=== PATIENT | female | born 1970 | race Caucasian/White ===

== ENCOUNTER 2019-01-24 17:06 | Inpatient (IN) | payer OTHER ==
[~2019-01-24] VITALS: Ht 165.1 cm; Wt 64.0 kg
--- NOTE | 2019-01-24 17:06 | NUR ---
PT BIB RA 102, C/O CHEST PAIN WHILE BEING TX FROM [facility] TO [facility],ASA 325 MG GIVEN AND NTG, PT IS AAOX4, NOT IN RESPIRATORY DISTRESS, V/S STABLE, HOOKED TO MONITOR, KEPT RESTED AND COMFORTABLE, WILL CONTINUE TO MONITOR.
--- NOTE | 2019-01-24 17:25 | NUR ---
IV LINE ESTABLISHED, LABS DRAWNED AND SENT TO LAB.
[2019-01-24] MEDS ORDERED: NITROGLYCERIN 0.4 MG/TAB BOTTLE SL ONE (17:30)
[2019-01-24] MEDS ORDERED: IV NS 0.9% 500 ML BAG IV ONE (17:30)
[2019-01-24] MEDS ORDERED: ONDANSETRON HCL/PF 4 MG/2 ML VIAL IVP ONE (17:30)
[2019-01-24 17:43] LABS: BASOPHILS # (AUTO) 0.1 /CMM (0.0-0.2); BASOPHILS % (AUTO) 0.8 % (0.0-2.0); EOSINOPHILS % (AUTO) 1.2 % (0.0-6.0); HEMATOCRIT 36 % (33-45); HEMOGLOBIN 10.8 g/dL (11.5-14.8); LYMPHOCYTES % (AUTO) 18.8 % (20.0-44.0); MEAN CORPUSCULAR HGB CONC 30 g/dl (31.0-36.0); MEAN CORPUSCULAR VOLUME 69 fL (82-100); MONOCYTES # (AUTO) 0.7 /CMM (0.1-1.30); MONOCYTES % (AUTO) 6.1 % (2.0-12.0); NEUTROPHILS # (AUTO) 7.9 /CMM (1.8-8.9); NEUTROPHILS % (AUTO) 73.1 % (43.0-81.0); PLATELET COUNT (AUTO) 265 /CMM (150-450); RED BLOOD CELL COUNT(AUTO) 5.24 MIL/uL (4.0-5.2); WHITE BLOOD COUNT (AUTO) 10.8 K/uL (4.3-11.0)
[2019-01-24] MEDS ORDERED: NITROGLYCERIN 0.4 MG/TAB BOTTLE ONE (17:43)
[2019-01-24] MEDS ORDERED: ONDANSETRON HCL/PF 4 MG/2 ML VIAL ONE (17:43)
[2019-01-24] MEDS ORDERED: PHEN-563 PO (17:47)
[2019-01-24] MEDS ORDERED: ALPR2TAB2 PO (17:47)
[2019-01-24] MEDS ORDERED: INSU100V7 SQ (17:47)
[2019-01-24] MEDS ORDERED: INSU100V3 SQ (17:47)
--- NOTE | 2019-01-24 17:54 | NUR ---
6/10 PAIN,NTG 0.4 MG SL GIVEN UU=843/75 HR=90
--- NOTE | 2019-01-24 17:56 | NUR ---
PT REFUSED CT SCAN AND XRAY PROCEDURE.
[2019-01-24 17:59] LABS: PHENOBARBITAL 1 ug/ml (15-39)
--- NOTE | 2019-01-24 17:59 | NUR ---
NTG 0.4 MG SL GIVEN,03/29 PAIN LV=617/68 ,HR=95. NO RELIEF WITH NTG,DEGRASSE INFORMATION ASSURANCE OFFICER AWARE
[2019-01-24 18:02] LABS: ALANINE AMINOTRANSFERASE 19 U/L (12-78); ALKALINE PHOSPHATASE 106 U/L (46-116); ASPARTATE AMINOTRANSFERASE 20 U/L (15-37); BILIRUBIN,DIRECT 0.1 mg/dL (0.0-0.2); BILIRUBIN,TOTAL 0.3 mg/dL (0.2-1.0); CARBON DIOXIDE 26 mmol/L (21-32); CHLORIDE 102 mmol/L (98-107); CREATININE 0.7 mg/dL (0.6-1.3); POTASSIUM 4.2 mmol/L (3.5-5.1); SODIUM SERUM 134 mmol/L (136-145); TOTAL PROTEIN, SERUM 7.3 g/dL (6.4-8.2); UREA NITROGEN, BLOOD 18 mg/dL (7-18)
[2019-01-24 18:06] LABS: GLUCOSE 408 mg/dL (74-106)
[2019-01-24] MEDS ORDERED: IV NS 0.9% 1,000 ML BAG IV ONE (18:30)
[2019-01-24] MEDS ORDERED: INSULIN REGULAR, HUMAN 100 UNIT/ML 10 ML VIAL IV ONE (18:30)
[2019-01-24] MEDS ORDERED: INSULIN REGULAR, HUMAN 100 UNIT/ML 10 ML VIAL ONE (18:32)
[2019-01-24 18:51] LABS: BAND % (MANUAL) 1 % (0.0-5.0); EOSINOPHILS % (MANUAL) 1 % (0-4); LYMPHOCYTES % (MANUAL) 16 % (16-48); MONOCYTES % (MANUAL) 5 % (0-11.0); NEUTROPHILS % (MANUAL) 76 (42-76); REACTIVE LYMPHOCYTES 1 % (0-0)
--- NOTE | 2019-01-24 19:22 | NUR ---
REPORT GIVEN TO INNA STEINER FOR SASHA.
[2019-01-24] MEDS: PHENOBARBITAL SODIUM 1,000 MG in IV NS 0.9% 100 ML IV ONE (19:50)
--- NOTE | 2019-01-24 19:58 | NUR ---
PT RESTING IN BED, NAD NOTED. WILL CONTINUE TO MONITOR.
--- NOTE | 2019-01-24 19:59 | NUR ---
[facility] WAS CALLED. ENVIRONMENTAL COMPLIANCE MANAGER DR GREENWOOD
--- NOTE | 2019-01-24 20:11 | NUR ---
CALLED HOUSE SUP FOR TELE BED
--- NOTE | 2019-01-24 20:14 | NUR ---
TELE BED GIVEN 314-2
--- NOTE | 2019-01-24 20:18 | NUR ---
REPORT GIVEN TO FIONA KEITH FOR SASHA.
[2019-01-24 20:48] VITALS: BP 111/66
--- NOTE | 2019-01-24 20:48 | NUR ---
BIOMEDICAL ENGINEERING TECHNICIAN NOTE RECEIVED PT IN STABLE CONDITION A&O X3. PT IS ABLE TO ANSWER QUESTIONS WHEN ASKED MULTIPLE TIMES, PARTIALLY DROWSY. ACCOMPANIED BY 2 [employer] OFFICERS. NO SIGNS OF SOB OR DISTRESS, NO C/O PAIN. PT. REFUSED A BODY CHECK TO BE DONE. ALL BELONGINGS LOGGED AND SIGNED FOR. PT'S IV IN R HAND #18 PATENT AND INTACT. ALL CURRENT NEEDS ATTENDED TO: BED LOW, LOCKED, UPPER RAILS UP, AND CALL LIGHT WITHIN REACH. WILL CONT. TO MONITOR.
--- NOTE | 2019-01-24 21:40 | NUR ---
WOOD HEEL FLAP TRIMMER NOTE DR. DUNCAN MADE AWARE OF PT. ARRIVAL TO UNIT
[2019-01-24 21:47] VITALS: BP 109/79
[2019-01-24] MEDS ORDERED: HYDROMORPHONE INJ 2 MG/ML DISP.SYRIN IV PRN (22:30)
[2019-01-24] MEDS ORDERED: ACETAMINOPHEN 325 MG TABLET PO PRN (22:30)
[2019-01-24] MEDS ORDERED: LORAZEPAM INJ 2 MG/ML VIAL IV PRN (22:30)
[2019-01-24] MEDS ORDERED: DEXTROSE 50%-WATER 50 ML DISP.SYRIN IV PRN (22:30)
[2019-01-24] MEDS ORDERED: ZOLPIDEM TARTRATE 5 MG TABLET PO PRN (22:30)
[2019-01-24] MEDS ORDERED: ONDANSETRON HCL/PF 4 MG/2 ML VIAL IVP PRN (22:30)
--- NOTE | 2019-01-25 | NUR ---
SALESPERSON TRAILERS AND MOTOR HOMES NOTE PT SEEN AND EXAMINED BY DR. DUNCAN.
--- NOTE | 2019-01-25 | NUR ---
IT DIRECTOR NOTE PT. REFUSED 0000 VITALS TO BE TAKEN. PT SCREAMING AND YELLING, TRYING TO PULL AT TELE MONITOR CORDS. WILL CONT TO MONITOR.
[2019-01-25 03:52] VITALS: BP 135/82
[2019-01-25 03:56] VITALS: BP 135/82
[2019-01-25] MEDS: INSULIN REGULAR, HUMAN 100 UNIT/ML 3 ML VIAL SQ PRN ×4 (06:21→22:07)
[2019-01-25 06:36] LABS: BASOPHILS % (AUTO) 0.3 % (0.0-2.0); EOSINOPHILS % (AUTO) 1.9 % (0.0-6.0); HEMATOCRIT 34 % (33-45); HEMOGLOBIN 10.5 g/dL (11.5-14.8); LYMPHOCYTES # (AUTO) 2.1 /CMM (0.8-4.8); LYMPHOCYTES % (AUTO) 20.5 % (20.0-44.0); MEAN CORPUSCULAR HGB CONC 31 g/dl (31.0-36.0); MEAN CORPUSCULAR VOLUME 69 fL (82-100); MONOCYTES # (AUTO) 0.6 /CMM (0.1-1.30); MONOCYTES % (AUTO) 6.2 % (2.0-12.0); NEUTROPHILS # (AUTO) 7.2 /CMM (1.8-8.9); NEUTROPHILS % (AUTO) 71.1 % (43.0-81.0); PLATELET COUNT (AUTO) 244 /CMM (150-450); RED BLOOD CELL COUNT(AUTO) 4.97 MIL/uL (4.0-5.2); WHITE BLOOD COUNT (AUTO) 10.1 K/uL (4.3-11.0)
--- NOTE | 2019-01-25 06:44 | NUR ---
MS RN NOTE PT IN STABLE CONDITION A&O X3-4. PT IS ABLE TO ANSWER QUESTIONS WHEN ASKED MULTIPLE TIMES. 2 [employer] OFFICERS AT BEDSIDE. NO SIGNS OF SOB OR DISTRESS, NO C/O PAIN. TELE MONITOR SR 80. PT'S IV IN R HAND #18 PATENT AND INTACT. ALL CURRENT NEEDS ATTENDED TO: BED LOW, LOCKED, UPPER RAILS UP, AND CALL LIGHT WITHIN REACH. WILL CONT. TO MONITOR AND ENDORSE TO NEXT SHIFT FOR SASHA.
[2019-01-25 07:07] LABS: ALANINE AMINOTRANSFERASE 18 U/L (12-78); ALBUMIN 2.7 g/dL (3.4-5.0); ALKALINE PHOSPHATASE 86 U/L (46-116); ASPARTATE AMINOTRANSFERASE 14 U/L (15-37); BILIRUBIN,TOTAL 0.4 mg/dL (0.2-1.0); CALCIUM, SERUM 8.4 mg/dL (8.5-10.1); CARBON DIOXIDE 26 mmol/L (21-32); CHLORIDE 105 mmol/L (98-107); CREATININE 0.5 mg/dL (0.6-1.3); GLUCOSE 279 mg/dL (74-106); MAGNESIUM 1.6 mg/dL (1.8-2.4); POTASSIUM 3.8 mmol/L (3.5-5.1); SODIUM SERUM 139 mmol/L (136-145); TOTAL PROTEIN, SERUM 6.6 g/dL (6.4-8.2); UREA NITROGEN, BLOOD 15 mg/dL (7-18)
[2019-01-25 07:17] LABS: IRON, SERUM 22 ug/dl (50-175); TOTAL IRON BINDING CAPACITY 338 ug/dl (250-450)
[2019-01-25] MEDS: PANTOPRAZOLE 40 MG TABLET.DR PO SCH (07:30)
--- NOTE | 2019-01-25 07:30 | NUR ---
shipping hand Opening Notes Received patient asleep, resting in bed. Semi-Fowlers position, supine. Alert and oriented x3, able to make needs known. No complaints of shortness of breath or pain at this time. Respirations even and unlabored on room air, no acute distress noted. External vehicle monitor technician in place, patient currently refusing and pulling leads off. Peripheral IV to the right hand 18 gauge, intact, patent and saline locked. Updated patient on current plan of care and safety measures. Safety and fall precautions in place: bed in lowest and locked position, side rails up x2, bed alarm on, call light and personal possessions within reach. Reminded patient of safety measures, verbalized understanding. Patient in [employer] custody, accompanied by 2 police officers. Will continue to monitor and intervene as needed.
[2019-01-25 07:54] LABS: CHOLESTEROL 148 mg/dL (<200); HDL CHOLESTEROL 44 mg/dL (40-60); LDL 89 mg/dL (0-99); THYROID STIMULATING HORMONE 0.382 uIU/mL (0.358-3.74); TRIGLYCERIDES 94 mg/dL (30-150)
[2019-01-25 08:00] VITALS: BP 123/84
[2019-01-25] MEDS ORDERED: ALPRAZOLAM 1 MG TABLET PO PRN (08:00)
--- NOTE | 2019-01-25 08:13 | NUR ---
group supervisor yard Notes Patient agreed to keep nuclear monitoring technician leads in place: current reading sinus tachycardia at 96 bpm.
[2019-01-25] MEDS ORDERED: PHENOBARBITAL 100 MG TABLET PO SCH (09:00)
[2019-01-25] MEDS ORDERED: PHENOBARBITAL 30 MG TABLET PO SCH (09:30)
[2019-01-25] MEDS: BLOOD SUGAR DIAGNOSTIC 1 EACH STRIP IN SCH ×4 (10:03→22:07)
[2019-01-25] MEDS: ASPIRIN 81 MG TAB.CHEW PO SCH (10:04)
[2019-01-25] MEDS: DOCUSATE SODIUM 100 MG CAPSULE PO SCH ×2 (10:04→17:00)
[2019-01-25] MEDS: Magnesium 1GM/D5W 100ML PREMIX 100 ML IV SCH ×2 (11:41→12:02)
--- NOTE | 2019-01-25 17:00 | NUR ---
MS RN Note Patient's IV access dislodged from right hand. Removed with catheter tip intact. No redness, swelling or bleeding of the site noted. However, patient refusing insertion of IV access. Uncooperative and hostile at this time. Educated about benefits of having IV access, still refused. Will notify MD and follow-up.
--- NOTE | 2019-01-25 18:44 | NUR ---
MS RN Notes Patient asleep, resting in bed. Semi-Fowlers position, supine. Alert and oriented x3, able to make needs known. No complaints of shortness of breath or pain at this time. Respirations even and unlabored on room air, no acute distress noted. Currently no IV access, see nursing notes prior. Updated patient on current plan of care and safety measures. Safety and fall precautions in place: bed in lowest and locked position, side rails up x2, bed alarm on, call light and personal possessions within reach. Reminded patient of safety measures, verbalized understanding. Patient in [employer] custody, accompanied by 2 police officers at bedside. Initiated and maintained contact isolation. Will endorse to the airport duty manager RN for continuity of care.
--- NOTE | 2019-01-25 19:35 | NUR ---
MS/RN NOTES RECEIVED PT. LYING IN BED. PT. IS AWAKE, ALERT AND ORIENTED X3. BREATHING EVEN AND UNLABORED ON ROOM AIR. NO SOB, RESPIRATORY DISTRESS OR COMPLAINTS OF PAIN NOTED AT THIS TIME. PT. IS UNDER [employer] CUSTODY WITH TWO POLICE OFFICERS STATIONED OUTSIDE THE PT. ROOM. PT. HAS RIGHT ARM HANDCUFFED TO THE BED. PT. REMAINS WITHOUT ANY IV ACCESS, PT. REFUSING IV INSERTION, MD AWARE. ISOLATION PRECAUTIONS IMPLEMENTED AND IN PLACE. BED LOCKED AND IN LOWEST POSITION, SIDE RAILS UP X2, CALL LIGHT WITHIN REACH, WILL CONTINUE TO MONITOR.
[2019-01-25 20:00] VITALS: BP 97/60
[2019-01-25] MEDS ORDERED: INSULIN GLARGINE, 100 UNIT/ML CARTRIDGE SQ SCH (22:00)
--- NOTE | 2019-01-26 06:20 | NUR ---
MS/RN NOTES PT. COMPLAINING OF ITCHING AND PAIN IN HER VAGINA AND BUTTOCKS, ASSESSED THE PT. AND NOTED REDNESS TO BOTH AREAS. PT. NOTED TO BE SCRUBBING HERSELF VIGOROUSLY IN THOSE AREAS WITH A WASHCLOTH. EDUCATED PT. ON NOT SCRUBBING SO AGGRESSIVELY AND TO PAT THE AREA INSTEAD. PT. VERBALIZED UNDERSTANDING. PICTURES TAKEN AND PLACED IN PT. CHART. WOUND CONSULT ORDERED. WILL CONTINUE TO MONITOR.
[2019-01-26] MEDS: BLOOD SUGAR DIAGNOSTIC 1 EACH STRIP IN SCH ×2 (06:22→11:42)
[2019-01-26] MEDS: INSULIN REGULAR, HUMAN 100 UNIT/ML 3 ML VIAL SQ PRN ×2 (06:23→11:44)
[2019-01-26 06:25] LABS: CALCIUM, SERUM 8.6 mg/dL (8.5-10.1); CREATININE 0.5 mg/dL (0.6-1.3); MAGNESIUM 1.6 mg/dL (1.8-2.4); POTASSIUM 4.1 mmol/L (3.5-5.1)
[2019-01-26 06:30] LABS: BASOPHILS % (AUTO) 0.2 % (0.0-2.0); EOSINOPHILS % (AUTO) 2.1 % (0.0-6.0); HEMATOCRIT 37 % (33-45); HEMOGLOBIN 11.1 g/dL (11.5-14.8); LYMPHOCYTES # (AUTO) 2.4 /CMM (0.8-4.8); LYMPHOCYTES % (AUTO) 17.9 % (20.0-44.0); MEAN CORPUSCULAR HGB CONC 30 g/dl (31.0-36.0); MEAN CORPUSCULAR VOLUME 69 fL (82-100); MONOCYTES # (AUTO) 0.8 /CMM (0.1-1.30); MONOCYTES % (AUTO) 6.4 % (2.0-12.0); NEUTROPHILS # (AUTO) 9.7 /CMM (1.8-8.9); NEUTROPHILS % (AUTO) 73.4 % (43.0-81.0); PLATELET COUNT (AUTO) 243 /CMM (150-450); RED BLOOD CELL COUNT(AUTO) 5.43 MIL/uL (4.0-5.2); WHITE BLOOD COUNT (AUTO) 13.2 K/uL (4.3-11.0)
--- NOTE | 2019-01-26 07:05 | NUR ---
MS/RN NOTES PT. IS LYING IN BED RESTING, BREATHING EVEN AND UNLABORED ON ROOM AIR. NO SOB, RESPIRATORY DISTRESS OR COMPLAINTS OF PAIN NOTED AT THIS TIME. PT. IS UNDER [employer] CUSTODY WITH TWO POLICE OFFICERS STATIONED OUTSIDE THE PT. ROOM. PT. HAS RIGHT ARM HANDCUFFED TO THE BED. PT. REMAINS WITHOUT ANY IV ACCESS, PT. REFUSING IV INSERTION, MD AWARE. ISOLATION PRECAUTIONS IMPLEMENTED AND IN PLACE. ALL PT. NEEDS MET. BED LOCKED AND IN LOWEST POSITION, SIDE RAILS UP X2, CALL LIGHT WITHIN REACH, WILL ENDORSE TO DAYSHIFT NURSE FOR CONTINUITY OF CARE.
--- NOTE | 2019-01-26 07:10 | NUR ---
RN NOTES PATIENT IN BED ALERT ORIENTED X 3. NO ACUTE DISTRESS NOTED. BREATHING UNLABORED. NO SOB NOTED. SAFETY MEASURES IN PLACE. CALL LIGHT WITHIN REACH. WILL CONTINUE TO MONITOR ACCORDINGLY.
[2019-01-26 08:17] VITALS: BP 116/71
[2019-01-26] MEDS: DOCUSATE SODIUM 100 MG CAPSULE PO SCH (08:26)
[2019-01-26] MEDS: ASPIRIN 81 MG TAB.CHEW PO SCH (08:26)
[2019-01-26] MEDS: PANTOPRAZOLE 40 MG TABLET.DR PO SCH (08:26)
[2019-01-26] MEDS ORDERED: MUPIROCIN OINT 2% 22 GM TUBE SCH (09:00)
[2019-01-26] MEDS ORDERED: INSU100V3 SQ (10:42)
[2019-01-26] MEDS ORDERED: INSU100V7 SQ (10:42)
--- NOTE | 2019-01-26 10:47 | NUR ---
WOUND CARE CONSULT: PT PRESENTS INDEPENDENT WITH BED MOBILITY AND CONTINENT WITH REDNESS/RASH TO PERINEAL AREA AND INNER BUTTOCKS, PRESENT ON ADMISSION. RECOMMENDATIONS MADE FOR SKIN CARE AND PROTECTION. DISCUSSED WITH NURSING STAFF. WILL SEE PRN. NGUYEN IN AGREEMENT WITH PLAN OF CARE. Addendum: 01/26/19 at 1048 by GUSTAVO MACKENZIE WNDNU Amended: Links added.
[2019-01-26] MEDS: Magnesium 1GM/D5W 100ML PREMIX 100 ML IV SCH ×2 (11:00→11:45)
[2019-01-26] MEDS ORDERED: MAGNESIUM OXIDE 400 MG TABLET PO ONE (11:00)
[2019-01-26] MEDS ORDERED: CLOTRIMAZOLE 1% 15 GM TUBE TP SCH (11:00)
--- NOTE | 2019-01-26 12:20 | NUR ---
PHILOSOPHY AND RELIGION INSTRUCTOR NOTES PATIENT DISCHARGED WITH STABLE VITAL SIGNS. NO ACUTE DISTRESS NOTED.DISCHARGE INSTRUCTIONS GIVEN TO THE PATIENT, VERBALIZED UNDERSTANDING. ALL BELONGINGS ACCOUNTED FOR. REFUSED BODY CHECK AND PHOTO TAKEN. NEEDS ATTENDED. DISCHARGE IN CUSTODY TO CUSTODIAL ESCORTED BY WITH 2 [employer] IN STABLE CONDITION. PATIENT AMBULATORY WITH STEADY GAIT.
== END 2019-01-26 12:20 | DRG 313 ==
LOC: ER 17:07 → TELE 20:17 → MED 01-25 12:06
PROVIDERS: ADMIT Internal Medicine; ATTEND Family Medicine
DX: R07.9 Chest pain, unspecified (principal); E44.1 Mild protein-calorie malnutrition; G93.40 Encephalopathy, unspecified; Z76.5 Malingerer [conscious simulation]; F19.10 Other psychoactive substance abuse, uncomplicated; G40.909 Epilepsy, unspecified, not intractable, without status epilepticus; Z86.73 Personal history of transient ischemic attack (TIA), and cerebral infarction without residual deficits; Z79.4 Long term (current) use of insulin; Z79.899 Other long term (current) drug therapy; Z91.14 Patient's other noncompliance with medication regimen; Z59.0 Homelessness; K21.9 Gastro-esophageal reflux disease without esophagitis; G89.29 Other chronic pain; E10.65 Type 1 diabetes mellitus with hyperglycemia; E83.42 Hypomagnesemia; D50.9 Iron deficiency anemia, unspecified; K31.84 Gastroparesis; E10.43 Type 1 diabetes mellitus with diabetic autonomic (poly)neuropathy; F17.200 Nicotine dependence, unspecified, uncomplicated; F41.0 Panic disorder [episodic paroxysmal anxiety]; F90.9 Attention-deficit hyperactivity disorder, unspecified type
CPT/HCPCS: 36415; 71045-TC; 71046; 80048-TC; 80053-TC; 80061-TC; 80076-TC; 80184; 82010-TC; 82962-TC; 83540-TC; 83735-TC; 84100-TC; 84443-TC; 84484-TC; 84702-TC; 84703-TC; 85025-TC; 85730-TC; 87081-TC; G0378; J1815; J2405; J2560; J3475; J7030; J7040; J7050